=== PATIENT | female | born 1940 | race Caucasian/White ===

== ENCOUNTER → 2024-03-11 14:22 | Outpatient (REF) | payer MEDICARE, BC, SELFPAY | LOC: RAD 14:22 | PROVIDERS: ATTENDING PHYSICIAN Family Medicine | DX: M81.0 Age-related osteoporosis without current pathological fracture (principal); M06.9 Rheumatoid arthritis, unspecified | CPT/HCPCS: 77080 ==

== ENCOUNTER → 2024-03-23 14:29 | Outpatient (REF) | payer MEDICARE, BC, SELFPAY | LOC: WDC 14:29 | PROVIDERS: ATTENDING PHYSICIAN Surgery; FAMILY PHYSICIAN Family Medicine | DX: Z12.31 Encounter for screening mammogram for malignant neoplasm of breast (principal); Z85.3 Personal history of malignant neoplasm of breast | CPT/HCPCS: 77063; 77067 ==

== ENCOUNTER 2024-11-02 13:56 | Emergency (ER) | payer MEDICARE, BC, SELFPAY ==
--- NOTE | 2024-11-02 13:57 | ED.GENMED ---
ED Provider Triage
<Keshia Paige PA-C - Last Filed: 11/02/24 14:04>
-
Patient seen by provider in Triage?: Seen in Triage
Attestation: A medical screening examination has been initiated by a qualified medical provider. Based on the assessment performed at this time, it has been determined that an emergent medical condition may exist and the patient has been informed
that further medical evaluation and possible additional diagnostic testing may be needed.
HPI: 84yoF after a fall in the bathroom this afternoon. Fell backwards. No head strike. C/o R upper back that is worse with breathing. Not on blood thinners. Currently lives alone.
GENERAL: Alert , in no apparent distress
EYE: No visual abnormalities.
NECK: Trachea midline
ENT: No visible abnormalities.
LUNGS: No acute respiratory distress
NEUROLOGICAL: Alert and oriented
SKIN: Skin intact. No visible changes.
MUSCULOSKELETAL: Moving extremities normally
PSYCH: Normal and appropriate interaction.
This is a medical evaluation conducted in person to initiate diagnostic evaluation and provide initial therapeutics. Please see further documentation by the treating clinician.
Rib series and R scapular x-rays ordered.
History of Present Illness
<Keshia Paige PA-C - Last Filed: 11/02/24 14:04>
General
Chief Complaint: Fall
Time Seen by Provider: 11/02/24 15:12
<Mehul Barriga PA-C - Last Filed: 11/02/24 21:59>
General
Source: patient and family
History of Present Illness
History of Present Illness:
84-year-old female with past medical history of hypertension, previous breast cancer presenting to the emergency department for evaluation after she had an accidental slip and fall in her bathroom while at home earlier this morning now with pain to
the right posterior lateral portion of her back/ribs/scapular area with increased pain with movement and deep inspiration. Patient does not believe she hit her head at all and otherwise denies loss consciousness, vomiting, visual changes. Patient
denies any anticoagulant use but does states she takes a daily Advil for her rheumatoid arthritis. Prior to falling patient denies any lightheadedness, dizziness, chest pain, shortness of breath or any other concerns. She denies any extremity
related injuries. Patient states that she just recently got a cane to help her ambulate but has not been using it very much.
Past History
<Keshia Paige PA-C - Last Filed: 11/02/24 14:04>
Past History
ED Past Medical History: Cancer (with lumpectomy and radiation.), HTN and Other (arthritis with chronic pain)
ED Past Surgical History: Tonsilectomy and Other (right breast mass removed)
Social History
Tobacco: Non-smoker
Personal:
Living: with family
<Mehul Barriga PA-C - Last Filed: 11/02/24 21:59>
Social History
Alcohol: None
Drug: None
Living: alone
Review of Systems
<Mehul Barriga PA-C - Last Filed: 11/02/24 21:59>
Review of Systems
All Other Systems: ROS reviewed and negative except as documented in HPI and ROS
Phy Exam
<Mehul Barriga PA-C - Last Filed: 11/02/24 21:59>
Physical Exam
Physical Exam:
GENERAL: Alert , in no apparent distress at rest but appears uncomfortable with any movement
HEAD: NCAT
EYE: clear conjunctiva
NECK: Supple, no midline ttp
ENT: o/p clr, mmm.
CARDIAC: Regular rate and rhythm .
LUNGS: Clear breath sounds bilaterally, no acute respiratory distress, no wheezes/rales/rhonchi
CHEST WALL: ttp posterolateral 5-7 ribs. no flail chest
ABDOMEN: Soft, without focal tenderness, no r/g, no cvat
NEUROLOGICAL: Alert and oriented
SKIN: Warm and dry, skin intact.
MUSCULOSKELETAL: No edema, well perfused. arthritic changes throughout b/l UE
PSYCH: Normal and appropriate interaction.
Scores
<Mehul Barriga PA-C - Last Filed: 11/02/24 21:59>
Heart Failure Risk
Heart Failure Risk Score: Not Applicable
Heart Score for Chest Pain Patients
STEMI patient?: Not applicable
Withdrawal Assessment of Alcohol
Withdrawal Assessment Completed?: Not applicable
Course
<Keshia Paige PA-C - Last Filed: 11/02/24 14:04>
Orders/Labs/Results
Orders:
Orders
11/02/24 14:03
CR Ribs-right 3 Vw W/pa Chest* Urgent
Comment:
Reason For Exam: R upper back pain s/p fall
CR Scapula - Right Complete * Urgent
Comment:
Reason For Exam: Upper back pain s/p fall
11/02/24 14:50
CT Chest With Iv Contrast Urgent
Comment:
Reason For Exam: R upper back pain, fall
11/02/24 15:03
Complete Blood Count/With Diff Urgent
Comprehensive Metabolic Panel Urgent
11/02/24 15:44
CT Cervical Spine W/o Iv Contr Urgent
Comment:
Reason For Exam: fall, rib fx, possible head injury
Case Management Consult ONCE
Case Management Consult: VN/Home Care
PT Consult [Pt Eval And Treat] Urgent
Activity Level: Ambulate
11/02/24 15:45
CT Head W/o Iv Contrast Urgent
Comment:
Reason For Exam: fall, rib fx, possible head injury
11/02/24 15:53
Oxycodone [Roxicodone] 5 mg PO NOW STA
Abnormal Lab Results
11/02/24
15:03
RBC 3.28 L 10^6/uL
(4.20-5.40)
Hgb 10.4 L g/dL
(12.0-16.0)
Hct 30.8 L %
(37.0-47.0)
MCH 31.7 H pg
(27.0-31.0)
MPV 10.7 H fL
(7.4-10.4)
Absolute Lymphs (auto) 0.5 L 10^3/uL
(1.2-3.4)
Neutrophils % 89.0 H %
(42.2-75.2)
Lymphocytes % 6.5 L %
(20.5-51.1)
Sodium 133 L mmol/L
(135-145)
BUN 31 H mg/dl
(7-17)
AST 51 H U/L
(14-36)
11/02/24 15:03
11/02/24 15:03
Vital Signs
Initial and Last Documented VS:
Initial Vital Signs
Temp Pulse Resp BP Pulse Ox
98.6 F 103 16 139/88 98
11/02/24 13:58 11/02/24 13:58 11/02/24 13:58 11/02/24 13:58 11/02/24 13:58
Last Documented Vital Signs
Temp Pulse Resp BP Pulse Ox
98.6 F 84 18 122/74 97
11/02/24 13:58 11/02/24 18:24 11/02/24 18:24 11/02/24 18:24 11/02/24 18:24
<Mehul Barriga PA-C - Last Filed: 11/02/24 21:59>
Orders/Labs/Results
Orders:
Orders
11/02/24 14:03
CR Ribs-right 3 Vw W/pa Chest* Urgent
Comment:
Reason For Exam: R upper back pain s/p fall
CR Scapula - Right Complete * Urgent
Comment:
Reason For Exam: Upper back pain s/p fall
11/02/24 14:50
CT Chest With Iv Contrast Urgent
Comment:
Reason For Exam: R upper back pain, fall
11/02/24 15:03
Complete Blood Count/With Diff Urgent
Comprehensive Metabolic Panel Urgent
11/02/24 15:44
CT Cervical Spine W/o Iv Contr Urgent
Comment:
Reason For Exam: fall, rib fx, possible head injury
Case Management Consult ONCE
Case Management Consult: VN/Home Care
PT Consult [Pt Eval And Treat] Urgent
Activity Level: Ambulate
11/02/24 15:45
CT Head W/o Iv Contrast Urgent
Comment:
Reason For Exam: fall, rib fx, possible head injury
11/02/24 15:53
Oxycodone [Roxicodone] 5 mg PO NOW STA
Abnormal Lab Results
11/02/24
15:03
RBC 3.28 L 10^6/uL
(4.20-5.40)
Hgb 10.4 L g/dL
(12.0-16.0)
Hct 30.8 L %
(37.0-47.0)
MCH 31.7 H pg
(27.0-31.0)
MPV 10.7 H fL
(7.4-10.4)
Absolute Lymphs (auto) 0.5 L 10^3/uL
(1.2-3.4)
Neutrophils % 89.0 H %
(42.2-75.2)
Lymphocytes % 6.5 L %
(20.5-51.1)
Sodium 133 L mmol/L
(135-145)
BUN 31 H mg/dl
(7-17)
AST 51 H U/L
(14-36)
11/02/24 15:03
11/02/24 15:03
Vital Signs
Initial and Last Documented VS:
Initial Vital Signs
Temp Pulse Resp BP Pulse Ox
98.6 F 103 16 139/88 98
11/02/24 13:58 11/02/24 13:58 11/02/24 13:58 11/02/24 13:58 11/02/24 13:58
Last Documented Vital Signs
Temp Pulse Resp BP Pulse Ox
98.6 F 84 18 122/74 97
11/02/24 13:58 11/02/24 18:24 11/02/24 18:24 11/02/24 18:24 11/02/24 18:24
<Mehul Barriga PA-C - Last Filed: 11/02/24 21:59>
MDM/Problems Addressed
Differential Diagnosis Includes:
Rib fracture, pneumothorax, head injury/concussion/intracranial bleeding, visceral injury, chest wall contusion
MDM/Problems Addressed:
84-year-old female presenting to the emergency department for evaluation following an accidental slip and fall resulting in right-sided rib/scapular pain. X-rays were ordered and showed a right 5th and 6th rib fracture. CT chest ordered for further
evaluation as well as CT head/C-spine. Labs performed which show a mild anemia. Patient pain to be treated with 5mg PO oxycodone. Due to patient age and ambulatory issues I did order PT and Case Management consult
<Mehul Barriga PA-C - Last Filed: 11/02/24 21:59>
*Radiology
Radiology exam reviewed: radiology read reviewed
*Pulse Oximetry
Patient hypoxic: no
*Critical Care Note
Total Time (30-74mins, 75-104mins- exclusive of procedures): 30
comment:
Critical care statement: A total of 30 minutes of critical care time was provided for this patient. This includes management of unstable vital signs, evaluation of the patient at bedside, reviewing the patient's pertinent medical records, discussion
with consultants, review of old EKGs and review of pertinent medical records. This time with separate from time utilized to perform the aforementioned documented procedures
<Mehul Barriga PA-C - Last Filed: 11/02/24 21:59>
Patient Management
Discussion with other providers: Artistic Director
Escalation/DeEscalation of care consider admission/obs:
Patient CT scan of the chest shows right sided 4th through 8th rib fractures. There is no pneumothorax or other injuries identified on her scans. Patient remains hemodynamically stable, no acute respiratory distress. Given her advanced age, fall
risk, lives alone I do not feel patient is safe to be discharged home. Given the multiple consecutive rib fractures not a candidate to stay at this hospital. I spoke with the on-call trauma physician, Dr. Vasquez, at [facility] who accepts
the patient in transfer. Will arrange for transport to [facility]. Patient agreeable with this plan.
ED Attending Note
<Keshia Paige PA-C - Last Filed: 11/02/24 14:04>
-
Portions of this chart may have been created with voice recognition software.� Occasional wrong word or��sound alike� substitutions may have occurred due to the inherent limitations of voice recognition software.
Discharge Plan
Departure
Patient Disposition: Acute Care Hospital
Date of Disposition: 11/02/24
Time of Disposition: 18:14
Discharge Problem:
Fracture of ribs, five, closed, Accidental fall
Prescriptions:
No Action
ibuprofen [Advil Liqui-Gel] 200 MG capsule
200 mg PO HS
ibuprofen [Advil Liqui-Gel] 200 MG capsule
400 mg PO DAILY
exemestane 25 MG tablet
25 mg PO DAILY
Maxzide
25 mg PO DAILY
Referrals:
Winifred Montanez DO [Family Provider] -
Hospital Transfer
Other hospital: [facility]
I certify that the patient requires transfer: Yes
Discussed case with accepting physician: Dr. Blackburn
Reason for transfer: higher level of care, availability of service and specialties available
Interventions
Interventions:
*Risk Screen - Suicide Last Done: 11/02/24 14:00
*General Assessment Last Done: 11/02/24 19:44
*Neglect/Abuse Screening Last Done: 11/02/24 14:00
ED- Fall Risk Assessment Last Done: 11/02/24 19:44
*ED COVID-19 Vaccine History Last Done: 11/02/24 19:44
*Nursing Disposition Last Done: 11/02/24 19:44
ED-Musculoskeletal Assessment Last Done: 11/02/24 18:21
ED- Neurological Assessment Last Done: 11/02/24 18:21
ED-Skin Assessment Last Done: 11/02/24 19:45
Discharge Date and Time
Discharge Date/Time: 11/02/24 19:46
Print Language: SWISS
[2024-11-02 13:58] VITALS: BP 139/88
[2024-11-02 15:12] LABS: % Basophils 0.3 % (0-2); % Eosinophils 0.5 % (0-6); % Immature Granulocytes 0.3 % (0-0.5); % Lymphocytes 6.5 % (20.5-51.1); % Monocytes 3.4 % (1.7-9.3); Absolute Lymphocytes 0.5 10^3/uL (1.2-3.4); Absolute Monocytes 0.3 10^3/uL (0.1-0.6); Absolute Neutrophils 6.5 10^3/uL (1.4-6.5); Hematocrit 30.8 % (37.0-47.0); Hemoglobin 10.4 g/dL (12.0-16.0); Mean Corp Hgb Conc. 33.8 g/dL (33.0-37.0); Mean Corpuscular Hgb 31.7 pg (27.0-31.0); Mean Corpuscular Volume 93.9 fL (81.0-99.0); Mean Platelet Volume 10.7 fL (7.4-10.4); Nucleated Red Blood Cells % 0 %; Platelet Count 155 10^3/uL (130-400); Red Blood Cell Count 3.28 10^6/uL (4.20-5.40); Red Cell Dist. Width 14.5 % (11.5-14.5); White Blood Cell Count 7.4 10^3/uL (4.8-10.8)
[2024-11-02 15:24] LABS: ALT (SGPT) 30 U/L (0-35); AST (SGOT) 51 U/L (14-36); Albumin 3.6 g/dl (3.5-5.0); Alkaline Phosphatase 52 U/L (38-126); Blood Urea Nitrogen 31 mg/dl (7-17); Calcium 9.4 mg/dl (8.4-10.2); Carbon Dioxide 29 mmol/L (22-30); Chloride 100 mmol/L (98-107); Glucose 97 mg/dl (70-99); Potassium 4.2 mmol/L (3.5-5.1); Sodium 133 mmol/L (135-145); Total Bilirubin 0.5 mg/dl (0.2-1.3); Total Protein 6.3 g/dl (6.3-8.2); eGFR > 60.00
[2024-11-02 16:17] VITALS: BP 183/86; PULSE 96; O2SAT 99
--- NOTE | 2024-11-02 16:30 | CM ---
Addendum entered by Miracle Vidal RN 11/02/24 17:22:
CM met with patient and friend in room. Patient's is agreeable to [facility]N. Referral sent to [facility] clinical rehab liaison.
Addendum entered by Miracle Vidal RN 11/02/24 16:30:
PT has recommended home health. Patient is currently in CT. CM will meet with patient to discuss options.
Original Note:
CM was consulted for [facility]. CM attempted to meet with patient. Patient currently being evaluated by PT.
[2024-11-02] MEDS: ROXICODONE 5 MG PO (17:03)
[2024-11-02 17:06] VITALS: BMI 17.0
[2024-11-02 18:24] VITALS: BP 122/74
--- NOTE | 2024-11-03 08:22 | VNURNOTE ---
Received referral from ER JAMES Rausch. Liaison reached out to patient, no answer, left message. Referral placed in [facility].
--- NOTE | 2024-11-03 08:34 | VNURNOTE ---
Addendum: Chart further reviewed, per MT, pt was transferred to [facility] from . No referral placed at this time. JAMES Rausch updated.
== END 2024-11-02 19:46 | disposition short-term general hospital (02) ==
LOC: EMR 13:56
PROVIDERS: Physician Assistant; EMERGENCY PHYSICIAN Emergency Medicine; FAMILY PHYSICIAN Family Medicine
DX: S22.41XA Multiple fractures of ribs, right side, initial encounter for closed fracture (principal); W01.0XXA Fall on same level from slipping, tripping and stumbling without subsequent striking against object, initial encounter; I10 Essential (primary) hypertension
CPT/HCPCS: 99291; 70450; 71101; 71260; 72125; 73010; 80053; 85025; Q9967

== ENCOUNTER → 2024-11-25 12:18 | Outpatient (REF) | payer OTHER, MEDICARE, BC, SELFPAY ==
[2024-11-25 13:42] LABS: % Basophils 0.6 % (0-2); % Eosinophils 1.4 % (0-6); % Immature Granulocytes 0.9 % (0-0.5); % Monocytes 7.8 % (1.7-9.3); % Neutrophils 74.3 % (42.2-75.2); Absolute Basophils 0.1 10^3/uL (0-0.2); Absolute Eosinophils 0.1 10^3/uL (0-0.7); Absolute Immature Granulocytes 0.1 10^3/uL (0-0.05); Absolute Lymphocytes 1.3 10^3/uL (1.2-3.4); Absolute Monocytes 0.7 10^3/uL (0.1-0.6); Absolute Neutrophils 6.6 10^3/uL (1.4-6.5); Hemoglobin 9.5 g/dL (12.0-16.0); Mean Corp Hgb Conc. 32.8 g/dL (33.0-37.0); Mean Corpuscular Hgb 31.6 pg (27.0-31.0); Mean Corpuscular Volume 96.3 fL (81.0-99.0); Mean Platelet Volume 11.1 fL (7.4-10.4); Nucleated Red Blood Cells % 0 %; Platelet Count 247 10^3/uL (130-400); Red Blood Cell Count 3.01 10^6/uL (4.20-5.40); Red Cell Dist. Width 14.1 % (11.5-14.5); White Blood Cell Count 8.8 10^3/uL (4.8-10.8)
[2024-11-25 14:22] LABS: Blood Urea Nitrogen 24 mg/dl (7-17); Carbon Dioxide 27 mmol/L (22-30); Chloride 93 mmol/L (98-107); Glucose 87 mg/dl (70-99); Potassium 3.8 mmol/L (3.5-5.1); Sodium 127 mmol/L (135-145); eGFR > 60.00
== END ==
LOC: OLABP 12:18
PROVIDERS: ATTENDING PHYSICIAN Family Medicine
DX: S22.41XD Multiple fractures of ribs, right side, subsequent encounter for fracture with routine healing (principal); R07.82 Intercostal pain; M79.621 Pain in right upper arm; E83.42 Hypomagnesemia; E83.41 Hypermagnesemia; I10 Essential (primary) hypertension; Z85.3 Personal history of malignant neoplasm of breast
CPT/HCPCS: 36415; 80048; 85025

== ENCOUNTER → 2024-11-28 11:06 | Outpatient (REF) | payer OTHER, MEDICARE, BC, SELFPAY ==
[2024-11-28 11:50] LABS: Blood Urea Nitrogen 22 mg/dl (7-17); Calcium 8.9 mg/dl (8.4-10.2); Carbon Dioxide 28 mmol/L (22-30); Chloride 93 mmol/L (98-107); Glucose 85 mg/dl (70-99); Sodium 128 mmol/L (135-145); eGFR > 60.00
== END ==
LOC: OLABP 11:06
PROVIDERS: ATTENDING PHYSICIAN Family Medicine
DX: S22.41XD Multiple fractures of ribs, right side, subsequent encounter for fracture with routine healing (principal); R07.82 Intercostal pain; R26.2 Difficulty in walking, not elsewhere classified; E83.42 Hypomagnesemia; E83.41 Hypermagnesemia; M19.90 Unspecified osteoarthritis, unspecified site; Z85.3 Personal history of malignant neoplasm of breast; E44.0 Moderate protein-calorie malnutrition
CPT/HCPCS: 36415; 80048

== ENCOUNTER 2025-01-14 13:58 | Emergency (ER) | payer MEDICARE, BC, SELFPAY ==
[2025-01-14 14:00] VITALS: BP 141/68
--- NOTE | 2025-01-14 14:21 | EDRN ---
Dr. Deleon in room w/pt at this time.
--- NOTE | 2025-01-14 14:24 | ED.GENMED ---
History of Present Illness
General
Chief Complaint: Bowel Problem
Source: patient
Exam Limitations: none
Time Seen by Provider: 01/14/25 14:20
History of Present Illness
History of Present Illness:
See MDM
Past History
Past History
ED Past Medical History: Cancer (with lumpectomy and radiation.), HTN and Other (arthritis with chronic pain)
ED Past Surgical History: Tonsilectomy and Other (right breast mass removed)
Social History
Tobacco: Non-smoker
Alcohol: None
Drug: None
Personal:
Living: alone
Phy Exam
Physical Exam
Physical Exam:
See MDM
Course
Orders/Labs/Results
Orders:
Orders
01/14/25 14:24
Electrocardiogram (*1) Urgent
Reason for Study: Syncope
EKG- Treatment ONCE
Abdomen Xray - 1 View [CR Abdomen - 1 View] Urgent
Comment:
Reason For Exam: lower abd pain, constipated
01/14/25 14:39
Complete Blood Count/With Diff Urgent
Comprehensive Metabolic Panel Urgent
Abnormal Lab Results
01/14/25
14:39
WBC 13.7 H 10^3/uL
(4.8-10.8)
Abs Immat Gran (auto) 0.1 H 10^3/uL
(0-0.05)
Absolute Neuts (auto) 11.5 H 10^3/uL
(1.4-6.5)
Absolute Monos (auto) 0.7 H 10^3/uL
(0.1-0.6)
Neutrophils % 83.6 H %
(42.2-75.2)
Lymphocytes % 10.3 L %
(20.5-51.1)
Sodium 131 L mmol/L
(135-145)
Chloride 96 L mmol/L
(98-107)
BUN 29 H mg/dl
(7-17)
Glucose 123 H mg/dl
(70-99)
01/14/25 14:39
01/14/25 14:39
Vital Signs
Initial and Last Documented VS:
Initial Vital Signs
Temp Pulse Resp BP Pulse Ox
97.9 F 80 16 141/68 99
01/14/25 14:00 01/14/25 14:00 01/14/25 14:00 01/14/25 14:00 01/14/25 14:00
Last Documented Vital Signs
Temp Pulse Resp BP Pulse Ox
97.9 F 80 16 141/68 99
01/14/25 14:00 01/14/25 14:00 01/14/25 14:00 01/14/25 14:00 01/14/25 14:00
MDM/Problems Addressed
Differential Diagnosis Includes:
HPI and MDM Narrative:
84-year-old female presenting with generalized abdominal pain and questionable syncopal event. Patient resides in a nursing facility. She was helped to the bathroom to try to defecate. Patient was having trouble passing stool and apparently her
eyes rolled back and she may or may not have syncopized. Patient does not believe that she passed out. She is more concerned about trouble with constipation. She states has been several days her last bowel movement. She denies nausea or
vomiting. On exam, her abdomen is soft. Heart regular rate and rhythm. Will obtain basic blood work, screening EKG and will obtain x-ray to evaluate amount of stool and location to see whether or not she is a candidate for an enema
Physical exam
General: Well appearing and non-toxic
HEENT: protecting airway
Neck: appears supple
CV: No evidence of cyanosis. Regular rate and rhythm
Resp: No accessory muscle use
Abd: Non-distended. No tenderness on exam
Extremities: No deformities
Neuro: alert
Psych: Normal affect
Skin: Intact
Problems Addressed including Acute and Chronic Conditions affecting care:
1. General abdominal pain and constipation
Acuity: acute
Prognosis: stable
Details: Will obtain abdominal x-ray and consider enema
2. Questionable syncope
Acuity: acute
Prognosis: stable
Details: Will obtain basic blood work and screening EKG
Updates
2:50 PM patient had very large bowel movement while IV was being placed. Patient states she feels better
4:15 PM patient still having gas pain but states she is feeling much better. Patient feels comfortable going home
Differential Diagnosis (but not limited to): Syncope, diverticulitis, constipation
Testing considered: Urinalysis
Drug therapy (if applicable): OTC meds, please see d/c instruction regarding Rx drugs
Amount and/or Complexity of Data Reviewed
Clinical info obtained from: Patient
External data reviewed: N/A
Labs I independently reviewed (but not limited to): Mild hyponatremia
Radiology: X-ray independently reviewed: Abdominal x-ray with nonspecific gas pattern
Pulse Ox: not hypoxic
EKG independently reviewed: Sinus rhythm, PVCs, normal axis, no STEMI
Polymer Tester: N/A
Critical Care: N/A
Risk of Complication:
Social Determinants of health: Good social support
Discussed with other providers: N/A
Escalation of Care includes Admit/Obs: After being observed in the Emergency Department, pt stable for discharge.
Occasional wrong word or 'sound a like' substitutions may have occurred due to the inherent limitations of voice recognition software. Read the chart carefully and recognize, using context, where substitutions have occurred.
*Critical Care Note
Total Time (30-74mins, 75-104mins- exclusive of procedures): Not Applicable
ED Attending Note
-
Portions of this chart may have been created with voice recognition software.� Occasional wrong word or��sound alike� substitutions may have occurred due to the inherent limitations of voice recognition software.
Discharge Plan
Departure
Patient Disposition: Home (Routine Discharge)
Date of Disposition: 01/14/25
Time of Disposition: 16:19
Patient with high blood pressure during this ER visit?: Yes
Discharge Problem:
Constipation
Instructions: Syncope (fainting), Constipation, Adult (DC)
Prescriptions:
No Action
ibuprofen [Advil Liqui-Gel] 200 MG capsule
200 mg PO HS
ibuprofen [Advil Liqui-Gel] 200 MG capsule
400 mg PO DAILY
exemestane 25 MG tablet
25 mg PO DAILY
Maxzide
25 mg PO DAILY
Referrals:
Shelley Frias DO [Family Provider] -
Activity Restrictions/Additional Instructions:
Please return for any worsening symptoms.
You may return at any time if you have further concerns.
Please follow up with your doctor at the first available appointment, preferably this week.
Please start taking a daily stool softener in addition to drinking more water.
Thank you for choosing [facility].
Interventions
Interventions:
*Risk Screen - Suicide Last Done: 01/14/25 14:01
*General Assessment Last Done: 01/14/25 14:35
*Neglect/Abuse Screening Last Done: 01/14/25 14:01
ED- Fall Risk Assessment Last Done: 01/14/25 14:35
*ED COVID-19 Vaccine History Last Done: 01/14/25 14:35
YE-Pybqwk-Xjpvmggmul Assessment Last Done: 01/14/25 14:35
Discharge Date and Time
Print Language: SINHALA
[2025-01-14 14:35] VITALS: BMI 14.4
--- NOTE | 2025-01-14 14:40 | EDRN ---
During IV insertion pt had a large loose brown liquid/loose BM w/ flecks of food in her depends, unable to stop it from coming out. Pt was thoroughly cleaned especially her jian area. Dr. Deleon was informed of BM.
[2025-01-14 14:50] LABS: % Basophils 0.3 % (0-2); % Eosinophils 0.2 % (0-6); % Immature Granulocytes 0.4 % (0-0.5); % Lymphocytes 10.3 % (20.5-51.1); % Monocytes 5.2 % (1.7-9.3); % Neutrophils 83.6 % (42.2-75.2); Absolute Immature Granulocytes 0.1 10^3/uL (0-0.05); Absolute Lymphocytes 1.4 10^3/uL (1.2-3.4); Absolute Monocytes 0.7 10^3/uL (0.1-0.6); Absolute Neutrophils 11.5 10^3/uL (1.4-6.5); Hematocrit 39.4 % (37.0-47.0); Mean Corpuscular Hgb 30.1 pg (27.0-31.0); Mean Corpuscular Volume 91.2 fL (81.0-99.0); Mean Platelet Volume 9.9 fL (7.4-10.4); Nucleated Red Blood Cells % 0 %; Platelet Count 205 10^3/uL (130-400); Red Blood Cell Count 4.32 10^6/uL (4.20-5.40); Red Cell Dist. Width 12.6 % (11.5-14.5); White Blood Cell Count 13.7 10^3/uL (4.8-10.8)
[2025-01-14 15:02] LABS: ALT (SGPT) 14 U/L (0-35); AST (SGOT) 28 U/L (14-36); Albumin 4.3 g/dl (3.5-5.0); Alkaline Phosphatase 92 U/L (38-126); Blood Urea Nitrogen 29 mg/dl (7-17); Calcium 9.6 mg/dl (8.4-10.2); Carbon Dioxide 26 mmol/L (22-30); Chloride 96 mmol/L (98-107); Glucose 123 mg/dl (70-99); Potassium 4.2 mmol/L (3.5-5.1); Sodium 131 mmol/L (135-145); Total Bilirubin 0.9 mg/dl (0.2-1.3); Total Protein 7.6 g/dl (6.3-8.2); eGFR > 60.00
[2025-01-14 16:34] VITALS: BP 138/64
== END 2025-01-14 16:45 ==
LOC: EMR 13:58
PROVIDERS: EMERGENCY PHYSICIAN Student in an Organized Health Care Education/Training Program; FAMILY PHYSICIAN Family Medicine
DX: K59.00 Constipation, unspecified (principal); I10 Essential (primary) hypertension; Z92.3 Personal history of irradiation
CPT/HCPCS: 99285; 74018; 80053; 85025; 93005